=== PATIENT | female | born 1970 | race Caucasian/White ===

== ENCOUNTER 2021-06-04 17:41 | Emergency (ER) | payer OTHER ==
[2021-06-04 17:52] VITALS: BP 122/73; PULSE 84; TEMP 97.8; BMI 27.4
[2021-06-04] MEDS ORDERED: BACITRACIN 15 GM TUBE TOPICAL OINTMENT ONE (18:32)
== END 2021-06-04 18:50 | disposition home or self-care (01) ==
LOC: JERFT 17:41
DX: M54.89 Other dorsalgia (principal)
CPT/HCPCS: 99282-25